=== PATIENT | female | born 1945 | race Caucasian/White ===

== ENCOUNTER 2018-11-17 10:09 | Inpatient (IN) ==
[2018-11-17] MEDS ORDERED: cefOXitin 2,000 MG in Water for inj. (sterile) 20 ML IVP ONE (10:37)
[2018-11-17] MEDS ORDERED: Ringers Solution, Lactated 1,000 ML IVC SCH (10:45)
--- NOTE | 2018-11-17 11:10 | Anesthesia Evaluation PreOp ---
Date of Encounter: 11/17/18 Time of Encounter: 11:10 - Past History Planned Operation: robotic sigmoid colectomy Cardiac History: HTN (occasional hypertension, on no routine medications), Hyperlipidemia Pulmonary History: Denies Any Significant HX RUG INSPECTOR History: Denies Any Significant HX Other Medical History: Denies Any Significant HX Anesthesia History: No Prior Anesthetic Complications, Past Anesthesia Alcohol Use: heavy (three beers/day), recent Drug use: none Medications and Allergies Ascorbate Calcium [Vitamin C] 500 mg PO DAILY 10/03/15 [History] Cholecalciferol (Vitamin D3) [Vitamin D3] 2,000 unit PO DAILY 10/03/15 [History] Lactobacillus Combination No.8 [Adult Probiotic] 1 cap PO DAILY 10/03/15 [History] [place]-3/Dha/Epa/Fish Oil [Fish Oil 1,000 mg Softgel] 1 cap PO DAILY 10/03/15 [History] Cetirizine HCl [Zyrtec] 10 mg PO DAILY 10/01/18 [History] Glucosam/Chondroit/C/Manganese [Cosamin Ds Capsule] 1 cap PO DAILY 10/01/18 [History] Allergy/AdvReac Type Severity Reaction Status Date / Time No Known Allergies Allergy Verified 11/17/18 11:11 - Meds/Allergy Pre-op Review Medications Reviewed: Yes Allergies Reviewed: Yes Beta Blockers on Current Med List: No Anesthesia Results - Imaging EKG: pending Anesthesia Exam Selected Entries 11/17/18 10:30 Temperature 98.5 F Temperature Source Oral Pulse Rate 85 Respiratory Rate 18 Blood Pressure 150/98 O2 Sat by Pulse Oximetry 96 Weight: 69 kg. BMI 25.7 NPO (# of Hours): over 8 hours - HEENT Pupil (Motor): Pupils equal Teeth: Edentulous Oral Opening: Greater than 3 - RUG INSPECTOR LOC: Oriented - Cardiac Rhythm: Regular Murmur: None - Pulmonary Breath Sounds: bilateral Clear Respiratory Effort: Symmetrical Anesthesia Assess/Plan ASA Score: 2 Level of consciousness: Cooperative Anesthetic Plan: General Monitoring Plan: Standard Monitors Recovery Plan: PACU (Discussed GA, risks. Agreed to proceed.)
[2018-11-17] MEDS ORDERED: Acetaminophen IV 1,000 MG/100 ML INFUS..BTL IVPB ONE (11:15)
[2018-11-17] MEDS ORDERED: *HR* FentaNYL (PF) 100 MCG/2 ML VIAL ONE ×2 (13:02→15:11)
[2018-11-17] MEDS ORDERED: *HR* Propofol 200 MG/20 ML VIAL IVP ONE (13:03)
[2018-11-17] MEDS ORDERED: *HR* Succinylcholine 200 MG/10 ML VIAL IVP ONE (13:05)
[2018-11-17] MEDS ORDERED: *HR* Rocuronium Bromide 50 MG/5 ML VIAL ONE ×2 (13:05→15:19)
[2018-11-17] MEDS ORDERED: Lidocaine -MPF 2% 2 ML VIAL ONE (13:05)
[2018-11-17] MEDS ORDERED: Ondansetron 4 MG/2 ML VIAL ONE (13:05)
[2018-11-17] MEDS ORDERED: Dexamethasone 4 MG/ML VIAL ONE (13:05)
--- NOTE | 2018-11-17 13:56 | General Surg History&Physical ---
Date of Encounter: 11/17/18 Time of Encounter: 13:53 Assessment and Plan (1) Abnormal CT of the abdomen Current Visit: Yes Status: Acute The assessment and plan as outlined above was discussed with the patient and/or family members who expressed understanding and agreement. All questions were answered. (2) Sigmoid stricture Current Visit: Yes Status: Acute The assessment and plan as outlined above was discussed with the patient and/or family members who expressed understanding and agreement. All questions were answered. patient with sigmoid lesion either mass or stricture, planning robotic possible open sigmoid resection, risks and benefits discussed and she wishes to proceed bowel prepped yesterday History of Present Illness Chief complaint: sigmoid lesion HPI: Ms. Damico is a 73 year old female who had constipation, an incomplete colonoscopy and inability to advance past the sigmoid. Barium enema revealed either a stricture or a mass. Labs normal. CT abd/pelvis showed acute on chronic diverticulitis but patient was asymptomatic. Planning robotic possible open sigmoid resection. Past Med Surg Social Fam HX - Past Medical History Medical history: hyperlipidemia Additional medical history: diverticulosis, IBS, Osteoporosis, Sigmoid Lesion (mass or Stricture) Psychiatric history: no psych history - Past Surgical History Surgical History: hysterectomy, orthopedic, other Additional surgical history: ovary. shoulder pin. OOpherectomy. Right Shoulder. Right Humerus. Colonoscopy - Social History Smoking Status: Never smoker Smokeless Tobacco Status: No Alcohol use: heavy (three beers/day), recent Drug use: none - Family History Grandmother History Unknown: Yes Medications and Allergies Ascorbate Calcium [Vitamin C] 500 mg PO DAILY 10/03/15 [History] Cholecalciferol (Vitamin D3) [Vitamin D3] 2,000 unit PO DAILY 10/03/15 [History] Lactobacillus Combination No.8 [Adult Probiotic] 1 cap PO DAILY 10/03/15 [History] [place]-3/Dha/Epa/Fish Oil [Fish Oil 1,000 mg Softgel] 1 cap PO DAILY 10/03/15 [History] Cetirizine HCl [Zyrtec] 10 mg PO DAILY 10/01/18 [History] Glucosam/Chondroit/C/Manganese [Cosamin Ds Capsule] 1 cap PO DAILY 10/01/18 [History] Allergy/AdvReac Type Severity Reaction Status Date / Time No Known Allergies Allergy Verified 11/17/18 11:11 Review of Systems All systems PM: reviewed and no additional remarkable complaints except as stated All systems PM: The remainder of the systems were reviewed and are negative General Surgery Exam Initial Vital Signs Temp Pulse Resp BP Pulse Ox 98.5 F 85 18 150/98 96 11/17/18 10:30 11/17/18 10:30 11/17/18 10:30 11/17/18 10:30 11/17/18 10:30 - General physical appearance well nourished, no distress - Eyes PERRL - ENT normal mucosa - Neck no masses - Respiratory normal expansion, normal respiratory effort - Cardiovascular Cardiovascular exam: Present: RRR - Integumentary Integumentary general surgery: Present: warm and dry - Neurologic Present: CN 2-12 grossly intact - Musculoskeletal Present: normal posture - Psychiatric Psychiatric general surgery: Present: A&Ox3 Results - Labs All other labs normal. - Imaging CT scan - abdomen: report reviewed, image reviewed CT scan - pelvis: report reviewed, image reviewed
[2018-11-17] MEDS ORDERED: EPHEDrine 50 MG/ML VIAL ONE (14:55)
[2018-11-17] MEDS ORDERED: *HR* PHENYLEPHRINE 1,000 MCG/10 ML SYRINGE IVP ONE (15:03)
[2018-11-17] MEDS ORDERED: *HR* HYDROMORPHONE 2 MG/ML VIAL ONE (16:17)
[2018-11-17] MEDS ORDERED: Neostigmine Methylsulfate 3 MG/3 ML SYRINGE ONE (18:43)
[2018-11-17] MEDS ORDERED: Piperacillin/Tazobactam 3.375 GM in 0.9 % Sodium Chloride Mini Bag 100 ML IVPB ONE (19:00)
--- NOTE | 2018-11-17 19:29 | Operative Note ---
Date of procedure: 11/17/18 Pre-op diagnosis: sigmoid lesion (mass or stricture) Post-op diagnosis: same Procedure: Robotic sigmoid colectomy Complications: none immediate Anesthesia: GETA, local Local Anesthetics: 0.5% Sensorcaine HCL SubQ (cc) (30) Surgeon: Sol Blake Was there an assistant store manager trainee present: Yes Shop Teacher: Negin Hansen Estimated blood loss (cc): 10 Urine output (cc): 200 Specimen: anastomotic rings, sigmoid colon Condition: stable Disposition: PACU Procedure in Detail: She was brought into the operating suite and placed supine on the operating table. Sign in was performed and everyone was in agreement. Anesthesia was induced and patient was endotracheally intubated by anesthesia without incident. Main catheter was placed by the circulating nurse. NG tube was placed by anesthesia. Patient was placed in lithotomy position with bilateral legs in yellowfin stirrups. Abdomen was prepped and draped in the usual sterile fashion. Timeout was performed again everyone was in agreement. Stab incision left upper quadrant was made through the skin and the subcutaneous tissue with an 11 blade. Veress needle was placed in this and water drop test confirmed placement and the abdomen was insufflated. We then entered the abdomen the left upper quadrant with a 5 mm 0 degree laparoscope on a 5 mm XL trocar. The area under entry was visualized there was no bleeding or apparent bowel injury. There was one adhesion from the sigmoid colon to the anterior abdominal wall. A supraumbilical 8 mm robotic port was placed under direct visualization after first incising skin with an 11 blade. The adhesion between the sigmoid colon and the intra-abdominal wall was taken down sharp scissors. A right lower quadrant 8 mm robotic port was placed under direct visualization after first incising the skin with 11 blade. A 12 mm robotic port was placed in the right lower quadrant several centimeters from the right ASIS under direct visualization after first incising the skin with 11 blade. The small bowel was moved into the right upper quadrant. A 5 mm assist port was placed in the right lateral abdominal wall under direct visualization after first incising the skin with 11 blade. The patient was placed in Trendelenburg right side down position. The left upper quadrant 5 mm port was exchanged for a robotic 8 mm port under direct visualization. The robot was brought over the patient's right abdomen and all port sites docked. Using the tip up, caudie, and robotic vessel sealer an opening in the mesentery just distal to the AGNES was made with the vessel sealer. Dissection through the sigmoid mesentery to the lateral abdominal wall was accomplished with gentle blunt dissection and the vessel sealer. The left ureter was identified and kept out of harm's way throughout the remainder of the case. Using the vessel sealer the mesentery of, and the left AGNES as well as the IMV was dissected out and ligated. The sigmoid mesentery continued to be taken down with the vessel sealer and a distal direction to the and including the proximal rectum. The descending colon as well as the sigmoid was taken off the lateral abdominal wall at the white line of Toldt with the vessel sealer and gentle blunt dissection, up to the splenic flexure. The sigmoid colon lesion was identified and was densely adherent to the left lateral abdominal wall. Dissection taking down adhesions between the sigmoid colon and the left abdominal wall was accomplished for approximately 1 hour due to the severe nature of the dense adhesions. The peritoneum over the proximal rectum was dissected circumferentially around the rectum. Using the vessel sealer the mesentery behind the rectum at a point chosen for transection was dissected down to the posterior rectal wall. ICG was given intravenously by anesthesia and the area of the rectum that was chosen for transection illuminated well as did the distal descending colon. Using the robotic 60 mm s tapler green load 2 the proximal rectum was transected. The sigmoid colon was grasped with a laparoscopic [place]. The robot was undocked. Lower midline incision through the skin and the subcutaneous tissues made with a 15 blade. Dissection through the subcutaneous tissue to the intra-abdominal wall muscle was made with the Bovie. Tremont's are placed on either side of the fascia for retraction and the abdomen was entered with the Bovie through the linea alba fascia. A medium Torsten wound retractor was placed. The sigmoid colon was delivered through the lower midline incision. An area of the distal descending colon was chosen for transection. An opening in the mesentery beneath this area the colon was made with the Bovie. 2 Ce's were placed on the mesentery for to assess vasculature and ligated with an 0 silk tie. A pursestring stapler was placed across the distal descending colon and transected with heavy curved scissors. Babcocks are placed on either side of the open colon and the colon was dilated. A on EEA 28 mm stapler was chosen to create the anastomosis and the anvil was placed into the open distal descending colon and the pursestring stitch tied. The colon was then delivered back into the abdominal cavity, the Torsten wound retractor was used to create a seal and the abdomen was insufflated. The robot was brought over the patient's right abdomen and docked again. The assistant store manager trainee went below and using the colon dilators dilated the rectal stump. A colorectal anastomosis using the 28 mm EEA stapler was created. A 30 mL Main catheter balloon was placed into the anus and the balloon insufflated with saline. Laparoscopic Mary[place]uy 2 was placed across the distal descending colon, sterile saline was instilled into the pelvis, and the colorectal anastom osis was insufflated with 140 mL of air and bounced. There was no obvious anastomotic leak. Sterile saline was suctioned free from the pelvis. The robot was undocked and all trochars removed. The Torsten wound retractor was removed. The anastomotic rings were evaluated and were found to be 2 complete intact rings. Tremont's are placed on either side of the abdominal wall fascia at the lower midline incision for retraction. The abdominal wall was closed with 2 separate #1 non-looped PDS running stitches meeting in the middle. The subcutaneous tissue was copiously irrigated with sterile saline. The subcutaneous tissue of the midline incision was reapproximated with 3-0 Vicryl stitches and the skin was closed with phoebe. The right lower quadrant 12 mm robotic port abdominal wall was closed with an 0 Vicryl [id number] stitch. All the robotic port sites skin were closed with 4-0 Monocryl interrupted subcuticular stitches. Mastisol and Steri-Strips were applied all port site incisions. 4 x 4 gauze and Medipore tape were applied to the lower midline incision. Patient was awoken by anesthesia and extubated in the OR, all lap and management counts are correct at the end of the case. Patient tolerated the procedure well. Main catheter remained with the patient after surgery. She was taken to PACU in stable condition.
[2018-11-17] MEDS ORDERED: Naloxone 0.4 MG/ML INJ IVP PRN (20:18)
[2018-11-17] MEDS ORDERED: *HR* OxyCODONE Immed Rel 5 MG TABLET PO PRN (20:18)
[2018-11-17] MEDS ORDERED: *HR* Metoprolol 5 MG/5 ML VIAL IVP PRN (20:18)
[2018-11-17] MEDS ORDERED: *HR* Promethazine 25 MG/ML VIAL IVP PRN (20:18)
[2018-11-17] MEDS ORDERED: Ondansetron 4 MG/2 ML VIAL IVP PRN (20:18)
--- NOTE | 2018-11-17 20:36 | Anesthesia Evaluation Post Op ---
Date of Encounter: 11/17/18 Time of Encounter: 20:35 - Vital Signs Vital Signs: Vital Signs/O2 Sat, Most Current Temp Pulse Resp BP Pulse Ox 97.9 F 71 12 142/80 99 11/17/18 19:50 11/17/18 19:50 11/17/18 19:50 11/17/18 19:50 11/17/18 19:50 - Lungs Lungs: Clear Ascult./Percussion - Airway Airway: Non-obstructed - Cardiovascular Regular Rate - Mental Status Mental Status: Alert & Oriented, Answers Appropriately - Pain Pain Scale: 0 Pain Scale used: Numeric (1 - 10) - Nausea Vomiting Nausea Vomiting: Not Present - Hydration Hydration: NPO - Discharge PostOp Status: Transfer Patient to floor
[2018-11-17] MEDS: 0.9 % Sodium Chloride 1,000 ML IVC SCH (21:57)
[2018-11-17] MEDS: *HR* OxyCODONE Immed Rel 5 MG TABLET PO PRN (22:02)
[2018-11-18] MEDS: Acetaminophen IV 1,000 MG/100 ML INFUS..BTL IVPB SCH ×4 (00:22→18:32)
[2018-11-18] MEDS: Piperacillin/Tazobactam 3.375 GM in 0.9 % Sodium Chloride Mini Bag 100 ML IVPB SCH ×3 (00:30→15:41)
[2018-11-18] MEDS: 0.9 % Sodium Chloride 1,000 ML IVC SCH ×2 (05:30→15:42)
[2018-11-18 07:07] LABS: Basophils % 0.2 %; Immature Granulocytes % 0.4 % (0-4); Lymphocytes # 1.1 K/mcL (0.6-4.6); Lymphocytes % 13.7 %; Mean Corpuscular Hemoglobin 32.6 pg (28.0-33.3); Mean Corpuscular Volume 98.9 fL (83.0-100.0); Mean Platelet Volume 11.2 fL (9.4-12.4); Monocytes % 9.1 %; Platelet Count 204 K/mcL (140-400); Red Blood Count 3.74 M/mcL (3.82-4.97); Red Cell Distribution Width 13.2 % (11.5-14.5); Segmented Neutrophils % 76.6 %
[2018-11-18 07:15] LABS: Hemoglobin 12.2 g/dL (11.5-15.4); Monocytes # 0.8 K/mcL (0.0-1.3); Neutrophils # 6.3 K/mcL (1.6-8.9); White Blood Count 8.2 K/mcL (4.3-11.1)
[2018-11-18 07:32] LABS: BUN/Creatinine Ratio 17 (6-26); Blood Urea Nitrogen 12 mg/dL (8-23); Calcium 8.2 mg/dL (8.6-10.3); Carbon Dioxide 26 mEq/L (23-29); Chloride 106 mEq/L (98-107); Glucose 134 mg/dL (70-105); Magnesium 1.8 mg/dL (1.6-2.6); Osmolality,Calculated 292 (280-300); Phosphorous 3.9 mg/dL (2.7-4.5); Potassium 3.7 mEq/L (3.5-5.1); Sodium 140 mEq/L (136-145); eGFR For African Americans > 60 (> 60); eGFR For Non-African Americans > 60 (> 60)
[2018-11-18] MEDS ORDERED: *HR* OxyCODONE/APAP 5/325 TABLET PO PRN (11:13)
--- NOTE | 2018-11-18 12:39 | General Surgery Progress Note ---
<Melany Calvillo Daniel - Last Filed: 11/18/18 12:51> Date of Encounter: 11/18/18 Time of Encounter: 11:00 - Assessment and Plan (1) Sigmoid stricture Current Visit: Yes Status: Acute Date of procedure: 11/17/18 Pre-op diagnosis: sigmoid lesion (mass or stricture) Post-op diagnosis: same Procedure: Robotic sigmoid colectomy Complications: none immediate Anesthesia: GETA, local Local Anesthetics: 0.5% Sensorcaine HCL SubQ (cc) (30) Surgeon: Sol Blake POD #1 as above. Pathology remains pending. She is recovering remarkably well today. She reports having bowel function and that her discomfort is controlled. She would like her Mayo catheter removed. Plan: Continue supportive care and discomfort management while awaiting full return of bowel function clear liquid diet with no carbonation Continue G.I. and DVT prophylaxis Incentive spirometry 10 times every hour while awake Out of bed to chair TID, do not offer meal trays while in the bed Activity as tolerated Apply ice 20 minutes on 20 minutes off as needed remove Mayo catheter repeat a.m. labs Subjective Patient reports: no new complaints, still having pain, pain is less, voiding w/o difficulty (per mayo), flatus, bowel movement, afebrile Objective Vital Signs - Last 8 Hours Temp Pulse Resp BP Pulse Ox 11/18/18 11:14 98.3 F 73 14 136/85 93 11/18/18 07:53 98.5 F 73 14 115/66 91 Intake and Output 11/17/18 11/18/18 11/18/18 23:59 07:59 15:59 Intake Total 1300 / 1779 479 / 1779 Output Total 210 / 210 550 / 800 250 / 800 Balance -210 / -210 750 / 979 229 / 979 Intake: IV Fluids 1300 / 1779 479 / 1779 0.9 % Sodium Chloride 1,000 ML 1000 / 1479 479 / 1479 @ 130 mls/hr IVC .[id number] [facility] Rx #:[id number] Ofirmev 1,000 mg/100 ml 1,000 200 / 200 mg In 100 ml @ 400 mls/hr IVPB Q6HR [facility] Rx#:[id number] Zosyn 3.375 GM In 0.9 % Sodium 100 / 100 Chloride (Mini-Bag +) 100 ML @ 25 mls/hr IVPB Q8HR [facility] Rx#: [id number] Oral 0 / 0 Output: Urine 250 / 250 Estimated Blood Loss 10 / 10 Urine Amount (Catheter) 200 / 200 Catheter 550 / 550 Other: Meal Breakfast Percent of Meal Consumed 0% Stool Size Small Stool Consistency liquid Stool Color Dark Red Blood # Voids 0 1 # Bowel Movements 0 1 Weight 75.4 kg Patient Weight 11/18/18 23:59 Weight 75.4 kg - General physical appearance well nourished, no distress, no pain - Eyes normal ocular movement - ENT atraumatic, normocephalic - Neck Neck exam: trachea midline - Respiratory normal expansion, normal respiratory effort, clear to auscultation - Cardiovascular Cardiovascular exam: Present: RRR - Abdomen Abdomen: Present: bowel sounds present, soft, tender (Expected postoperative) - Incision Incision: Present: clean and dry, intact - Integumentary no rash - Neurologic normal sensation - Musculoskeletal normal posture - Psychiatric oriented to time, oriented to person, oriented to place, speech is normal, memory intact - Labs 11/18/18 06:25 11/18/18 06:25 Diabetes panel 11/18/18 Range/Units 06:25 Sodium 140 (136-145) mEq/L Potassium 3.7 (3.5-5.1) mEq/L Chloride 106 (98-107) mEq/L Carbon Dioxide 26 (23-29) mEq/L BUN 12 (8-23) mg/dL Creatinine 0.71 (0.60-1.20) mg/dL Glucose 134 H (70-105) mg/dL Calcium 8.2 L (8.6-10.3) mg/dL Calcium panel 11/18/18 Range/Units 06:25 Calcium 8.2 L (8.6-10.3) mg/dL Phosphorus 3.9 (2.7-4.5) mg/dL Pituitary panel 11/18/18 Range/Units 06:25 Sodium 140 (136-145) mEq/L Potassium 3.7 (3.5-5.1) mEq/L Chloride 106 (98-107) mEq/L Carbon Dioxide 26 (23-29) mEq/L BUN 12 (8-23) mg/dL Creatinine 0.71 (0.60-1.20) mg/dL Glucose 134 H (70-105) mg/dL Calcium 8.2 L (8.6-10.3) mg/dL Adrenal panel 11/18/18 Range/Units 06:25 Sodium 140 (136-145) mEq/L Potassium 3.7 (3.5-5.1) mEq/L Chloride 106 (98-107) mEq/L Carbon Dioxide 26 (23-29) mEq/L BUN 12 (8-23) mg/dL Creatinine 0.71 (0.60-1.20) mg/dL Glucose 134 H (70-105) mg/dL Calcium 8.2 L (8.6-10.3) mg/dL Consult Discharge Plan - Plan Instructions: Colectomy (DC) Additional Instructions: General Surgical Discharge Instructions 1. No pushing, pulling, or lifting greater than 15 lbs for 4 weeks. 2. You may remove your dressings and shower beginning today, but no tub baths, soaking, or swimming for 2 weeks. 3. No driving for two weeks unless otherwise specified and then you may resume driving when you are off narcotics and are safe to react in a car. 4. Take ibuprofen every 8 hours for discomfort. If this does not relieve discomfort, you may take the as needed Percocet. Eat a small snack with pain me dication as this will help reduce the risk of nausea. Take narcotics as directed. Do not take more narcotics then directed and do not share your narcotics with any other person. Do not drink alcohol while on narcotics. You can take the Zofran/ondansetron if needed for nausea or with a dose of narcotics to prevent nausea. 5. Take stool softeners (Colace) or a water based laxative (Miralax) while taking narcotics. You may hold for loose stools. 6. Report any fevers greater than 100.5F, increase abdominal discomfort, d rainage that looks like pus, increased redness or pain at the surgical site, or any vomiting. 7. Report any pain in the calves, shortness of breath, or rapid heartbeat. 8. Follow-up in the office as directed. 9. If you were prescribed antibiotics, do not stop them without talking to your provider. Referrals: Sol Blake MD [Partnered Physician] - 12/03/18 10:35 am Eliel,Rajinder E, DO [Primary Care Provider] - <Sol Blake - Last Filed: 11/19/18 17:37> Date of Encounter: 11/18/18 - Assessment and Plan (1) Abnormal CT of the abdomen Current Visit: Yes Status: Acute (2) Sigmoid stricture Current Visit: Yes Status: Acute pod 1 robotic sigmoid colectomy patient doing well post op pain well controlled OOB to chair/ambulate dc mayo decrease rate IVF start clears am labs wnl Subjective Patient reports: still having pain, pain is less, voiding w/o difficulty, flatus, afebrile Objective Vital Signs - Last 8 Hours Temp Pulse Resp BP Pulse Ox 11/19/18 16:00 98.2 F 70 14 133/77 94 11/19/18 12:00 98.6 F 77 14 150/87 93 Intake and Output 11/19/18 11/19/18 11/19/18 07:59 15:59 23:59 Intake Total 1100 / 1600 500 / 1600 0 / 1600 Output Total 1700 / 4000 2000 / 4000 300 / 4000 Balance -600 / -2400 -1500 / -2400 -300 / -2400 Intake: IV Fluids 1100 / 1600 500 / 1600 0.9 % Sodium Chloride 1,000 ML 1000 / 1400 400 / 1400 @ 80 mls/hr IVC .[id number] [facility] Rx #:[id number] Ofirmev 1,000 mg/100 ml 1,000 100 / 200 100 / 200 mg In 100 ml @ 400 mls/hr IVPB Q6HR [facility] Rx#:[id number] Oral 0 / 0 0 / 0 Output: Urine 1700 / 4000 2000 / 4000 300 / 4000 Other: Stool Size Small Moderate Stool Consistency liquid liquid Stool Color Brown Green Black # Voids 1 4 # Bowel Movements 1 1 Weight 77.1 kg Patient Weight 11/19/18 23:59 Weight 77.1 kg - General physical appearance well developed, well nourished, no distress - Eyes normal ocular movement - ENT normal mucosa, normocephalic - Respiratory normal expansion, clear to auscultation - Cardiovascular Cardiovascular exam: Present: RRR - Abdomen Abdomen: Present: bowel sounds present, soft, tender (approp post op tenderness). Absent: guarding, rebound - Integumentary no rash - Neurologic normal sensation - Musculoskeletal normal posture - Psychiatric oriented to time, oriented to person, oriented to place, speech is normal, memory intact - Labs 11/19/18 03:31 11/19/18 03:31 Diabetes panel 11/19/18 Range/Units 03:31 Sodium 138 (136-145) mEq/L Potassium 3.0 L (3.5-5.1) mEq/L Chloride 106 (98-107) mEq/L Carbon Dioxide 28 (23-29) mEq/L BUN 7 L (8-23) mg/dL Creatinine 0.66 (0.60-1.20) mg/dL Glucose 100 (70-105) mg/dL Calcium 7.9 L (8.6-10.3) mg/dL Calcium panel 11/19/18 Range/Units 03:31 Calcium 7.9 L (8.6-10.3) mg/dL Pituitary panel 11/19/18 Range/Units 03:31 Sodium 138 (136-145) mEq/L Potassium 3.0 L (3.5-5.1) mEq/L Chloride 106 (98-107) mEq/L Carbon Dioxide 28 (23-29) mEq/L BUN 7 L (8-23) mg/dL Creatinine 0.66 (0.60-1.20) mg/dL Glucose 100 (70-105) mg/dL Calcium 7.9 L (8.6-10.3) mg/dL Adrenal panel 11/19/18 Range/Units 03:31 Sodium 138 (136-145) mEq/L Potassium 3.0 L (3.5-5.1) mEq/L Chloride 106 (98-107) mEq/L Carbon Dioxide 28 (23-29) mEq/L BUN 7 L (8-23) mg/dL Creatinine 0.66 (0.60-1.20) mg/dL Glucose 100 (70-105) mg/dL Calcium 7.9 L (8.6-10.3) mg/dL - Attending Attestation I have personally performed a face to face evaluation on this patient. I have reviewed and agree with the care plan. History and Exam by me shows:
--- NOTE | 2018-11-18 14:07 | Electrocardiograph Report ---
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
[2018-11-18] MEDS: *HR* Heparin 5,000 UNIT/ML VIAL SQ SCH (19:01)
[2018-11-18] MEDS: *HR* OxyCODONE Immed Rel 5 MG TABLET PO PRN (22:13)
[2018-11-19] MEDS: Acetaminophen IV 1,000 MG/100 ML INFUS..BTL IVPB SCH ×5 (00:24→23:59)
[2018-11-19 03:53] LABS: Basophils # 0.1 K/mcL (0.0-0.2); Basophils % 0.8 %; Eosinophils # 0.1 K/mcL (0.0-0.6); Hematocrit 35.4 % (35.3-44.9); Hemoglobin 11.7 g/dL (11.5-15.4); Immature Granulocytes % 0.3 % (0-4); Lymphocytes # 2.5 K/mcL (0.6-4.6); Lymphocytes % 34.5 %; Mean Corpuscular HGB Conc 33.1 g/dL (31.6-35.5); Mean Corpuscular Hemoglobin 32.8 pg (28.0-33.3); Mean Corpuscular Volume 99.2 fL (83.0-100.0); Mean Platelet Volume 11.1 fL (9.4-12.4); Monocytes # 0.5 K/mcL (0.0-1.3); Monocytes % 6.6 %; Neutrophils # 4.1 K/mcL (1.6-8.9); Platelet Count 180 K/mcL (140-400); Red Blood Count 3.57 M/mcL (3.82-4.97); Red Cell Distribution Width 13.2 % (11.5-14.5); Segmented Neutrophils % 56.8 %; White Blood Count 7.2 K/mcL (4.3-11.1)
[2018-11-19 04:03] LABS: BUN/Creatinine Ratio 11 (6-26); Blood Urea Nitrogen 7 mg/dL (8-23); Calcium 7.9 mg/dL (8.6-10.3); Carbon Dioxide 28 mEq/L (23-29); Chloride 106 mEq/L (98-107); Glucose 100 mg/dL (70-105); Osmolality,Calculated 284 (280-300); Sodium 138 mEq/L (136-145); eGFR For African Americans > 60 (> 60); eGFR For Non-African Americans > 60 (> 60)
[2018-11-19] MEDS: 0.9 % Sodium Chloride 1,000 ML IVC SCH ×2 (04:13→12:29)
[2018-11-19] MEDS: *HR* Heparin 5,000 UNIT/ML VIAL SQ SCH ×2 (05:30→18:21)
--- NOTE | 2018-11-19 09:45 | General Surgery Progress Note ---
<Martina Juan - Last Filed: 11/19/18 09:43> Date of Encounter: 11/19/18 Time of Encounter: 09:30 - Assessment and Plan (1) Sigmoid stricture Current Visit: Yes Status: Acute POD #2 Robotic sigmoid colectomy with Dr. Blake Pathology pending Advance to full liquid diet Saline lock IV fluids Supportive care and pain control Ambulate hallways TID with assistance GI prophylaxis IS every 1 hour while awake DVT prophylaxis (2) Hypokalemia Current Visit: Yes Status: Acute Potassium- 3.0 Replace potassium Repeat am BMP (3) DVT prophylaxis Current Visit: Yes Status: Acute Heparin 5,000 units SQ twice daily for DVT prophylaxis Ambulate hallways TID with assistance Subjective Patient reports: no new complaints, feels better, still having pain, pain is less, tolerating liquids well, voiding w/o difficulty, flatus, bowel movement, afebrile Objective Vital Signs - Last 8 Hours Temp Pulse Resp BP Pulse Ox 11/19/18 07:27 98.4 F 76 14 148/78 93 11/19/18 03:05 98.9 F 80 16 155/76 94 Intake and Output 11/18/18 11/19/18 11/19/18 23:59 07:59 15:59 Intake Total 621 / 2720 1100 / 1100 Output Total 200 / 1325 1700 / 1700 Balance 421 / 1395 -600 / -600 Intake: IV Fluids 621 / 2600 1100 / 1100 0.9 % Sodium Chloride 1,000 ML 521 / 2000 1000 / 1000 @ 80 mls/hr IVC .[id number] [facility] Rx #:[id number] Ofirmev 1,000 mg/100 ml 1,000 100 / 100 mg In 100 ml @ 400 mls/hr IVPB Q6HR [facility] Rx#:[id number] Zosyn 3.375 GM In 0.9 % Sodium 100 / 300 Chloride (Mini-Bag +) 100 ML @ 25 mls/hr IVPB Q8HR [facility] Rx#: [id number] Output: Urine 200 / 775 1700 / 1700 Other: Stool Size Small Stool Consistency liquid Stool Color Brown # Voids 1 # Bowel Movements 1 Weight 77.1 kg Patient Weight 11/19/18 23:59 Weight 77.1 kg - General physical appearance well developed, well nourished, no distress - Eyes normal ocular movement - ENT normal mucosa, atraumatic, normocephalic - Neck Neck exam: trachea midline - Respiratory normal respiratory effort, clear to auscultation - Cardiovascular Cardiovascular exam: Present: RRR - Abdomen Abdomen: Present: bowel sounds present, soft, tender (expected post-operative tenderness) - Incision Incision: Present: clean and dry, intact - Neurologic CN 2-12 grossly intact - Psychiatric oriented to time, oriented to person, oriented to place, speech is normal, memory intact - Labs 11/19/18 03:31 11/19/18 03:31 Diabetes panel 11/19/18 Range/Units 03:31 Sodium 138 (136-145) mEq/L Potassium 3.0 L (3.5-5.1) mEq/L Chloride 106 (98-107) mEq/L Carbon Dioxide 28 (23-29) mEq/L BUN 7 L (8-23) mg/dL Creatinine 0.66 (0.60-1.20) mg/dL Glucose 100 (70-105) mg/dL Calcium 7.9 L (8.6-10.3) mg/dL Calcium panel 11/19/18 Range/Units 03:31 Calcium 7.9 L (8.6-10.3) mg/dL Pituitary panel 11/19/18 Range/Units 03:31 Sodium 138 (136-145) mEq/L Potassium 3.0 L (3.5-5.1) mEq/L Chloride 106 (98-107) mEq/L Carbon Dioxide 28 (23-29) mEq/L BUN 7 L (8-23) mg/dL Creatinine 0.66 (0.60-1.20) mg/dL Glucose 100 (70-105) mg/dL Calcium 7.9 L (8.6-10.3) mg/dL Adrenal panel 11/19/18 Range/Units 03:31 Sodium 138 (136-145) mEq/L Potassium 3.0 L (3.5-5.1) mEq/L Chloride 106 (98-107) mEq/L Carbon Dioxide 28 (23-29) mEq/L BUN 7 L (8-23) mg/dL Creatinine 0.66 (0.60-1.20) mg/dL Glucose 100 (70-105) mg/dL Calcium 7.9 L (8.6-10.3) mg/dL Consult Discharge Plan - Plan Instructions: Colectomy (DC) Additional Instructions: General Surgical Discharge Instructions 1. No pushing, pulling, or lifting greater than 15 lbs for 4 weeks. 2. You may remove your dressings and shower beginning today, but no tub baths, soaking, or swimming for 2 weeks. 3. No driving for two weeks unless otherwise specified and then you may resume driving when you are off narcotics and are safe to react in a car. 4. Take ibuprofen every 8 hours for discomfort. If this does not relieve discomfort, you may take the as needed Percocet. Eat a small snack with pain medication as this will help reduce the risk of nausea. Take narcotics as directed. Do not take more narcotics then directed and do not share your narcotics with any other person. Do not drink alcohol while on narcotics. You can take the Zofran/ondansetron if needed for nausea or with a dose of narcotics to prevent nausea. 5. Take stool softeners (Colace) or a water based laxative (Miralax) while taking narcotics. You may hold for loose stools. 6. Report any fevers greater than 100.5F, increase abdominal discomfort, drainage that looks like pus, increased redness or pain at the surgical site, or any vomiting. 7. Report any pain in the calves, shortness of breath, or rapid heartbeat. 8. Follow-up in the office as directed. 9. If you were prescribed antibiotics, do not stop them without talking to your provider. Referrals: Sol Blake MD [Partnered Physician] - 12/03/18 10:35 am Rajinder Julian DO [Primary Care Provider] - - Attending Attestation For this encounter, I have reviewed the ALTERATION MANAGER or PA documentation, treatment plan, and medical decision making; and I have had face to face time with this patient. <Sol Blake - Last Filed: 11/19/18 17:39> Date of Encounter: 11/19/18 - Assessment and Plan (1) Sigmoid stricture Current Visit: Yes Status: Acute pod 2 robotic sigmoid colectomy pain controlled, continue percocet sliv advance to fulls OOB to chair for meals gi/dvt prophylaxis labs: K low, replaced IS/pulmonary toilet ambulate Subjective Patient reports: feels better, still having pain, pain is less, tolerating liquids well, voiding w/o difficulty, flatus, bowel movement, afebrile Objective Vital Signs - Last 8 Hours Temp Pulse Resp BP Pulse Ox 11/19/18 16:00 98.2 F 70 14 133/77 94 11/19/18 12:00 98.6 F 77 14 150/87 93 Intake and Output 11/19/18 11/19/18 11/19/18 07:59 15:59 23:59 Intake Total 1100 / 1600 500 / 1600 0 / 1600 Output Total 1700 / 4000 2000 / 4000 300 / 4000 Balance -600 / -2400 -1500 / -2400 -300 / -2400 Intake: IV Fluids 1100 / 1600 500 / 1600 0.9 % Sodium Chloride 1,000 ML 1000 / 1400 400 / 1400 @ 80 mls/hr IVC .[id number] [facility] Rx #:[id number] Ofirmev 1,000 mg/100 ml 1,000 100 / 200 100 / 200 mg In 100 ml @ 400 mls/hr IVPB Q6HR [facility] Rx#:[id number] Oral 0 / 0 0 / 0 Output: Urine 1700 / 4000 2000 / 4000 300 / 4000 Other: Stool Size Small Moderate Stool Consistency liquid liquid Stool Color Brown Green Black # Voids 1 4 # Bowel Movements 1 1 Weight 77.1 kg Patient Weight 11/19/18 23:59 Weight 77.1 kg - General physical appearance well developed, well nourished, no distress - Eyes normal ocular movement - ENT normal mucosa, normocephalic - Respiratory normal expansion, clear to auscultation - Cardiovascular Cardiovascular exam: Present: RRR - Abdomen Abdomen: Present: bowel sounds present, soft, distended, tender. Absent: tympanic, guarding, rebound - Incision Incision: Present: clean and dry, intact - Integumentary no growths - Neurologic CN 2-12 grossly intact - Musculoskeletal normal posture - Psychiatric oriented to time, oriented to person, oriented to place, speech is normal, memory intact - Labs 11/19/18 03:31 11/19/18 03:31 Diabetes panel 11/19/18 Range/Units 03:31 Sodium 138 (136-145) mEq/L Potassium 3.0 L (3.5-5.1) mEq/L Chloride 106 (98-107) mEq/L Carbon Dioxide 28 (23-29) mEq/L BUN 7 L (8-23) mg/dL Creatinine 0.66 (0.60-1.20) mg/dL Glucose 100 (70-105) mg/dL Calcium 7.9 L (8.6-10.3) mg/dL Calcium panel 11/19/18 Range/Units 03:31 Calcium 7.9 L (8.6-10.3) mg/dL Pituitary panel 11/19/18 Range/Units 03:31 Sodium 138 (136-145) mEq/L Potassium 3.0 L (3.5-5.1) mEq/L Chloride 106 (98-107) mEq/L Carbon Dioxide 28 (23-29) mEq/L BUN 7 L (8-23) mg/dL Creatinine 0.66 (0.60-1.20) mg/dL Glucose 100 (70-105) mg/dL Calcium 7.9 L (8.6-10.3) mg/dL Adrenal panel 11/19/18 Range/Units 03:31 Sodium 138 (136-145) mEq/L Potassium 3.0 L (3.5-5.1) mEq/L Chloride 106 (98-107) mEq/L Carbon Dioxide 28 (23-29) mEq/L BUN 7 L (8-23) mg/dL Creatinine 0.66 (0.60-1.20) mg/dL Glucose 100 (70-105) mg/dL Calcium 7.9 L (8.6-10.3) mg/dL - Attending Attestation I have personally performed a face to face evaluation on this patient. I have r eviewed and agree with the care plan. History and Exam by me shows:
[2018-11-20 05:43] LABS: BUN/Creatinine Ratio 9 (6-26); Blood Urea Nitrogen 6 mg/dL (8-23); Calcium 9.7 mg/dL (8.6-10.3); Carbon Dioxide 28 mEq/L (23-29); Chloride 100 mEq/L (98-107); Glucose 103 mg/dL (70-105); Osmolality,Calculated 286 (280-300); Potassium 3.6 mEq/L (3.5-5.1); Sodium 139 mEq/L (136-145); eGFR For African Americans > 60 (> 60); eGFR For Non-African Americans > 60 (> 60)
[2018-11-20] MEDS: Acetaminophen IV 1,000 MG/100 ML INFUS..BTL IVPB SCH (05:57)
[2018-11-20] MEDS: *HR* Heparin 5,000 UNIT/ML VIAL SQ SCH (05:57)
[2018-11-20 07:42] VITALS: BP 168/81
[2018-11-20] MEDS ORDERED: Ibuprofen 800 MG TABLET PO ONE (09:16)
--- NOTE | 2018-11-20 09:17 | Discharge Summary ---
Orders not resulted at time of discharge: Pending orders 11/17/18 19:27 Surgical Pathology [PTH] Routine Date of Encounter: 11/20/18 Time of Encounter: 09:15 - Discharge Diagnosis (1) Sigmoid stricture Priority: Primary Status: Resolved General Surgery Exam Initial Vital Signs Temp Pulse Resp BP Pulse Ox 98.5 F 85 18 150/98 96 11/17/18 10:30 11/17/18 10:30 11/17/18 10:30 11/17/18 10:30 11/17/18 10:30 - General physical appearance well developed, well nourished, no distress, other (sitting upright in chair at bedside) - Respiratory normal expansion, normal respiratory effort - Cardiovascular Cardiovascular exam: Present: RRR - Abdomen Abdomen general surgery: Present: bowel sounds present, soft, tender (expected postoperative). Absent: tympanic, distended - Incision Incision: Present: clean and dry, intact - Integumentary Integumentary general surgery: Present: warm and dry - Neurologic Present: normal coordination, normal sensation - Musculoskeletal Present: normal gait, normal posture - Psychiatric Psychiatric general surgery: Present: appropriate, oriented to person, oriented to place, oriented to time, speech is normal, memory intact - Hospital Course Hospital course: Ms. Damico is a 73 year old female underwent robotic sigmoid colectomy on 11/17/2017 for a sigmoid lesion (mass or stricture). Her hospital course has been uncomplicated. Her final pathology remains pending at this time. She is ambulating avoiding without difficulty, tolerating a diet without nausea or vomiting, vital signs are stable, afebrile, and she is having bowel function. We will begin discharge planning to home with a follow-up in the office in approximately 2 weeks. - Time Spent with Patient Total time spent providing and/or coordinating discharge services: - Discharge Medications Prescriptions: New Docusate Sodium [Colace] 100 mg PO BID PRN #30 capsule PRN Reason: Contstipation Ibuprofen 800 mg PO Q8H PRN #30 tablet PRN Reason: Postsurgical pain Polyethylene Glycol 3350 [MiraLAX Powder Bulk 17.9 Oz] 1 scoop PO DAILY 30 Days #510 gm HYDROcodone/Acet 5/325 mg [[place] 5-325 mg] 1 tab PO Q6H PRN 5 Days #20 tab PRN Reason: Pain Ondansetron ODT [Zofran ODT] 4 mg SL Q4HR PRN #15 tab.rapdis PRN Reason: Postsurgical nausea Continued [place]-3/Dha/Epa/Fish Oil [Fish Oil 1,000 mg Softgel] 1 cap PO DAILY Lactobacillus Combination No.8 [Adult Probiotic] 1 cap PO DAILY Cholecalciferol (Vitamin D3) [Vitamin D3] 2,000 unit PO DAILY Ascorbate Calcium [Vitamin C] 500 mg PO DAILY Glucosam/Chondroit/C/Manganese [Cosamin Ds Capsule] 1 cap PO DAILY Cetirizine HCl [Zyrtec] 10 mg PO DAILY Home Medications: Ascorbate Calcium [Vitamin C] 500 mg PO DAILY 10/03/15 [History] Cholecalciferol (Vitamin D3) [Vitamin D3] 2,000 unit PO DAILY 10/03/15 [History] Lactobacillus Combination No.8 [Adult Probiotic] 1 cap PO DAILY 10/03/15 [History] [place]-3/Dha/Epa/Fish Oil [Fish Oil 1,000 mg Softgel] 1 cap PO DAILY 10/03/15 [History] Cetirizine HCl [Zyrtec] 10 mg PO DAILY 10/01/18 [History] Glucosam/Chondroit/C/Manganese [Cosamin Ds Capsule] 1 cap PO DAILY 10/01/18 [History] Docusate Sodium [Colace] 100 mg PO BID PRN #30 capsule 11/20/18 [Rx] HYDROcodone/Acet 5/325 mg [[place] 5-325 mg] 1 tab PO Q6H PRN 5 Days #20 tab 11/20/18 [Rx] Ibuprofen 800 mg PO Q8H PRN #30 tablet 11/20/18 [Rx] Ondansetron ODT [Zofran ODT] 4 mg SL Q4HR PRN #15 tab.rapdis 11/20/18 [Rx] Polyethylene Glycol 3350 [MiraLAX Powder Bulk 17.9 Oz] 1 scoop PO DAILY 30 Days #510 gm 11/20/18 [Rx] Allergies/Adverse Reactions: Allergy/AdvReac Type Severity Reaction Status Date / Time No Known Allergies Allergy Verified 11/17/18 11:11 Date of admission: 11/17/18 20:12 Primary care physician: Rajinder Julian, DO Labs on day of discharge: Labs from last 24 hours 11/20/18 04:56 Sodium 139 Potassium 3.6 Chloride 100 Carbon Dioxide 28 BUN 6 L Creatinine 0.68 Est GFR ( Amer) > 60 Est GFR (Non-Af Amer) > 60 BUN/Creatinine Ratio 9 Glucose 103 Calculated Osmolality 286 Calcium 9.7 - Patient Status Disposition: Home, Self-Care Condition: Good Functional capacity at discharge: independent ambulation Overall status at discharge: patient is progressing back to baseline - Discharge Instructions Instructions: Colectomy (DC) Follow Up With: Sol Blake MD [Partnered Physician] - 12/03/18 10:35 am Rajinder Julian DO [Primary Care Provider] - Additional Instructions: General Surgical Discharge Instructions 1. No pushing, pulling, or lifting greater than 15 lbs for 4 weeks. 2. You may remove your dressings and shower beginning today, but no tub baths, soaking, or swimming for 2 weeks. 3. No driving for two weeks unless otherwise specified and then you may resume driving when you are off narcotics and are safe to react in a car. 4. Take ibuprofen every 8 hours for discomfort. If this does not relieve discomfort, you may take the as needed hydrocodone/acetaminophen. Eat a small snack with pain medication as this will help reduce the risk of nausea. Take narcotics as directed. Do not take more narcotics then directed and do not share your narcotics with any other person. Do not drink alcohol while on narcotics. You can take the Zofran/ondansetron if needed for nausea or with a dose of narcotics to prevent nausea. 5. Take stool softeners (Colace) or a water based laxative (Miralax) while taki ng narcotics. You may hold for loose stools. 6. Report any fevers greater than 100.5F, increase abdominal discomfort, drainage that looks like pus, increased redness or pain at the surgical site, or any vomiting. 7. Report any pain in the calves, shortness of breath, or rapid heartbeat. 8. Follow-up in the office as directed. 9. If you were prescribed antibiotics, do not stop them without talking to your provider. - Diet and Activity Activity: increase activity as tolerated Diet: advance to your usual diet
== END 2018-11-20 15:15 | disposition home or self-care (01) | DRG 331 ==
LOC: SAMDAY 10:09 → 3NENU 18:06 → 3ANU 20:12
PROVIDERS: ADMIT Surgery; ATTEND Surgery